=== PATIENT | female | born 1985 ===

== ENCOUNTER 2024-10-06 08:25 | Outpatient (AMB) | payer MEDICAID, SELFPAY ==
--- NOTE | 2024-10-05 10:07 | OBCLNT_ITS ---
Allergies/Home Meds Allergies & Medications Allergies No Known Allergies Allergy (Verified 01/08/21 14:11) Intake Smoking Status Smoking Status: Never smoker Questionnaires Social History Living Situation History Housing: House Tobacco History Smoking Status: Never smoker Alcohol History Alcohol Intake: Former Alcohol Intake Frequency: holidays/special occasions only Past Medical History Past Medical History Have you ever been diagnosed with any of the following: Neurological Problems Seizures: No Cardiology Problems Congestive Heart Failure: No Respiratory Problems Chronic Obstructive Pulmonary Disease (COPD): No Stomache/Intestinal Problems Hepatitis: No Gall Bladder Disease: Yes Obesity: Yes Genital/Urinary Problems Renal Disease: No Endocrine Problems Diabetes Mellitus Type 1: No Diabetes Mellitus Type 2: Yes (on insulin) Psychologic Problems Anxiety: Yes Depression: Yes Other Problems Hospitalization: No Down Syndrome: No Developmental Delay: No Shingles: No Falls: No Blood Transfusions: No Blood Transfusion Reaction: No Anesthesia Reactions: No Organ Transplant: No Chemotherapy: No Radiation Therapy: No Hyperbaric Therapy: No MRSA: No VRSA: No Vancomycin-Resistant Enterococci: No Human Immunodeficiency Virus (HIV): No Chicken Pox: No Measles: No Mumps: No Rubella (Japanese Measles): No Pertussis: No Clostridium Difficile: No Cancer: No
[2024-10-06 08:35] VITALS: BP 130/84; PULSE 83; RESP 16; TEMP 36.5; O2SAT 97; BMI 39.0
--- NOTE | 2024-10-06 08:35 | OBCLNT_ITS ---
Vital Signs 10/06/24 08:35 Height 1.68 m Height Method Stated Weight 109.826 kg Weight Measurement Method Standing Scale BMI 39.0 BP 130/84 Blood Pressure Source Automatic Cuff Blood Pressure Location Left Upper Arm Position Sitting Respiration 16 Pulse 83 Pulse Source Monitor Temp 97.7 F Temp Source Oral Pulse Oximetry (%) 97 Oxygen Delivery Method Room Air Allergies/Home Meds Allergies & Medications Allergies No Known Allergies Allergy (Verified 11/02/24 14:05) Medication Reconciliation prenat.vits,wen,cue-[id number]-[id number] 1 tab PO QDAY 01/08/21 [History Confirmed 11/02/24] Intake Visit Data Collection New Patient or Established: New Patient (never been to [facility]) Reason for Visit:: Feeling very agitated daily, hands going numb and hurting, lower back pain, difficulty sleeping at night, request to be taken off work Seen by Clinical Staff ONLY (RN/MA): No Supervisor [employer] Required: No Do You Feel Safe at Home: Yes Authorities Contacted: N/A PCP or OBGYN visit in last 3 months: Yes Hx Now: Yes Are you currently on any form of Control: No Last menstrual period: 01/31/24 Pain Present Currently: No Pain Scale Used: Guillory-Irby/Numerical Pain scale:: 0 Smoking Status Smoking Status: Never smoker Questionnaires Covid-19 Vaccine Questionnaire Has patient been vacinated for Covid-19 Have you been vacinated for Covid-19: Yes PHQ-9 PHQ-2 Over the last 2 weeks, how often have you been bothered by any of the following problems? 1. Little interest or pleasure in doing things: not at all 2. Feeling down, depressed, or hopeless: not at all Total score: 0 PHQ-9 3. Trouble falling or staying asleep, or sleeping too much: Not at all 4. Feeling tired or having little energy: Not at all 5. Poor appetite or overeating: Not at all 6. Feeling bad about yourself - or that you are a failure or have let yourself or your family down: Not at all 7. Trouble concentrating on things, such as reading the newspaper or watching television: Not at all 8. Moving or speaking so slowly that other people could have noticed? - Or the opposite - being so fidgety or restless that you have been moving around a lot more than usual: not at all 9. Thoughts that you would be better off or of hurting yourself in some way: Not at all Total score: 0 Source: Developed by Drs. Suman Bullock, Gabi Esposito, Obey Mejia and colleagues, with an educational radames from [employer]. Depression screen completed yes Social History Living Situation History Marital Status: Lives With: Family Housing: House Tobacco History Smoking Status: Never smoker Second Hand Smoke Exposure: No Alcohol History Alcohol Intake: Former Alcohol Intake Frequency: holidays/special occasions only Substance Use History Substance Use: NONE Domestic Abuse History Do You Feel Safe at Home: Yes Past Medical History Past Medical History Have you ever been diagnosed with any of the following: Neurological Problems Cerebrovascular Accident (CVA): No Transient Ischemic Attacks (TIA): No Dementia: No Alzheimer's Disease: No Parkinson's Disease: No Brain Tumor: No Meningitis: No Seizures: No Epilepsy: No Multiple Sclerosis: No Cerebral Palsy: No Cardiology Problems Myocardial Infarction: No Cardiac Arrhythmia: No Atrial Fibrillation: No Angina: No Heart Murmur: No Coronary Artery Disease: No Atherosclerotic Heart Disease: No Peripheral Vascular Disease: No Hypercholesterolemia: No Aneurysm: No Congestive Heart Failure: No Hypertension: No Respiratory Problems Chronic Obstructive Pulmonary Disease (COPD): No Asthma: No Bronchitis: No Emphysema: No Pneumonia: No Tuberculosis: No Hx Cough: No Cough: No Wheezing: No Chest Deformities: No Smoking: No Smoking Cessation Counseling: No Smoking Exposure: No Tobacco Use: No Stomache/Intestinal Problems Liver Cancer: No Hepatitis: No Cirrhosis: No Pancreatic Cancer: No Pancreatitis: No Gall Bladder Disease: Yes Ulcer: No Colorectal Cancer: No Irritable Bowel: No Crohn's Disease: No Obstructive Bowel: No Obesity: Yes Genital/Urinary Problems Chronic Kidney Disease: No Renal Disease: No Kidney Stones: No Reproductive Problems Breast Cancer: No Endometriosis: No Fibroids: No Genital Herpes: No Gonorrhea: No Previous Pregnancies: Yes Syphilis: No Musculoskeletal Problems Muscular Dystrophy: No Myasthenia Gravis: No Marfan's Syndrome: No Bone Cancer: No Arthritis: No Rheumatoid Arthritis: No Osteoporosis: No Fractures: No Head,Eye,Nose,Throat Problems Cataracts: No Blind: No Chronic Ear Infections: No Deafness: No Eye Prosthesis: No Endocrine Problems Diabetes Mellitus Type 1: No Diabetes Mellitus Type 2: Yes (on insulin) Hypoglycemia: No [place]'s Syndrome: No Dare's Disease: No Thyroid Cancer: No Adrenal Disease: No Graves' Disease: No Blood Problems Anemia: No Leukemia: No Hemophilia: No Thalassemia: No Sickle Cell Disease: No Clotting Problems: No Psychologic Problems Schizophrenia: No Recreational Drug Use: No Bipolar Disorder: No Depression: Yes Anxiety: Yes Behavior Problems: No Self-Mutilation: No Attention Deficit Disorder: No Attention Deficit Hyperactivity Disorder: No Depression: Yes Post Traumatic Stress Disorder: No Eating Disorder: No Other Problems Hospitalization: No Autoimmune Disease: No Down Syndrome: No Developmental Delay: No Shingles: No Falls: No Blood Transfusions: No Blood Transfusion Reaction: No Anesthesia Reactions: No Organ Transplant: No Chemotherapy: No Radiation Therapy: No Hyperbaric Therapy: No MRSA: No VRSA: No Vancomycin-Resistant Enterococci: No Human Immunodeficiency Virus (HIV): No Chicken Pox: No Measles: No Mumps: No Rubella (Luxembourgish Measles): No Pertussis: No Clostridium Difficile: No Cancer: No Surgical History Angioplasty: No Appendectomy: No Bariatric Surgery: No Breast Surgery: No History of Present Illness HPI Narrative Carlyn Aguilar, a woman with a history of two previous C-sections and one miscarriage, presents for a routine obstetric visit. She reports feeling very agitated and anxious daily, which she wonders may be related to weight gain during . The patient also complains of numbness and pain in her hands, as well as severe lower back pain. The patient describes feeling agitated and anxious every day, though the exact onset is unclear. She expresses concern that these symptoms might be related to her weight gain during . Additionally, she reports numbness and pain in her hands, which the clinician attributes to possible -related carpal tunnel syndrome. The patient also mentions severe lower back pain, which is impacting her ability to work. Due to these symptoms and her high-risk status with two previous C-sections, she is requesting to be taken off work starting Friday. The patient denies having diabetes, both currently and during her previous pregnancies. She reports difficulty sleeping at night. When discussing her diet, she mentions having coffee in the morning and varying lunch options, but states she's not eating that bad. Obstetric History - GTPAL: G4 T2 L2 - Current : - Patient is currently - history: - Two previous sections - One miscarriage Medical History - Anxiety, ongoing - Carpal tunnel syndrome during Surgical History - section for failure to dilate - Repeat section Medications and Supplements - Coffee Social History - Substance Use: Drinks coffee in the morning - Occupation: Currently employed, requesting time off work - Diet: Varies for lunch, advised to watch carbohydrate intake Review of Systems General: Positive for agitation, anxiety, weight gain. HEENT: Positive for numbness and pain in hands. Musculoskeletal: Positive for lower back pain. Neurological: Positive for numbness in hands. Psychiatric: Positive for anxiety, agitation. OB Initial Visit Menstrual History Menstrual reliability: approximate (month known) Flow: heavy Menstrual regularity: irregular Monthly: No Age at menarche: 12 On control pills at conception: No Associated symptoms (LMP): Reports fatigue OB History : 4 Para: 2 Hx Total # of Abortions (Spontaneous & Elective): 1 # of Living Children: 2 Delivery History 1st : Child's name: SAM date: 04/06/10 sex: male Delivery type: History of depression before or after : Yes 2nd : Child's name: GABRIELLA date: 01/04/21 sex: male Delivery type: History of depression before or after : Yes Infection History & Risk Evaluation History of STDs: chlamydia Genetic Screening & History Genetic Screening/Teratology Counseling - Includes patient, baby's father, or anyone in either family with: 1. Patient's age 35 years or older as of estimated date of delivery: Yes 3. Neural Tube Defect (Meningomyelocele, Spina Bifida, or Anencephaly): No 4. Congenital Heart Defect: No 5. Down Syndrome: No 6. Umer-Sachs (Ashkenazi Rastafari, Cajun, Estonian Luxembourger): No 7. Lucio Disease (Ashkenazi Rastafari): No 8. Familial Dysautonomia (Ashkenazi Rastafari): No 9. Sickle Cell Disease or Trait (): No 10. Hemophilia or other blood disorders: No 11. Muscular Dystrophy: No 12. Cystic Fibrosis: No 13. Pleasants's Chorea: No 14. Mental Retardation/Autism: No 15. Other inherited genetic or chromosomal disorder: No 16. Maternal Metabolic Disorder (EG,TYPE 1 Diabetes, PKU): No 17. Patient or baby's father had a child with defects not listed above: No 18. Recurrent loss or a stillbirth: No 19. Medications (including supplements, vitamins, herbs or otc drugs)/illicit/recreational drugs/alcohol since last menstrual period: No 20. Any other: No Infection History 1. Live with someone with TB or exposed to TB: No 2. Rash or viral illness since last menstrual period: No 3. Hepatitis B,C: No 4. History of STD: chlamydia Other (see comments) Source: [employer] OB Flowsheet OB Flowsheet Initial Weight: Not Recorded Date -?-?-?-?-?-?-?-?--?-?-?-?- EGA Weight Edema CTX Effacement BP Fundal ht Pres Dilation Effacement Station Visit Note Alb Glu FHR Mov 10/06/24 -?-?-?-?-?-?-?-?-?-?-?-?- 30w 4d 109.826 kg 130/84 Tra nsfer of care from Dr Malin. Records reviewed. Prev Carlyn Aguilar , pre sents for routine visit. Reports daily agitation, anxiety, numbne ss/pain in hands, severe lower back pain, and insomnia. Requests work leave starting Friday. No CTX/LOF/VB. Reports good FM. No MAX/VS, Epig/RUQ pain. History of 2 prior C-sections and 1 misc arriage. Not diabetic. Labs noted as good. Assessment & Plan: Carlyn Aguilar is a presenting f or follow-up with multiple third-trimester complaints. High-risk (2 prior C-sections) heart tones auscultated, reassurin g Provide work note for leave starting Fri Follow-up in 2 weeks, then transition to weekly appointments Continue routine monitoring Carlyn Aguilar , pre sents for routine visit. Reports daily agitation, anxiety, numbne ss/pain in hands, severe lower back pain, and insomnia. Requests work leave starting Friday. No CTX/LOF/VB. Reports good FM. No MAX/VS, Epig/RUQ pain. History of 2 prior C-sections and 1 misc arriage. Not diabetic. Labs noted as good. Assessment & Plan: Carlyn Aguilar is a presenting f or follow-up with multiple third-trimester complaints. High-risk (2 prior C-sections) heart tones auscultated, reassurin g Provide work note for leave starting Fri Follow-up in 2 weeks, then transition to weekly appointments Continue routine monitoring. Delivery counseling Reviewed prior history and [place] options Discussed risks of TOLAC, including uter ine rupture Noted that [facility] do es not permit TOLAC; referral to outside facility if TOLAC desired Plan for scheduled repeat if n o contraindications arise Routine counseling Reinforced importance of vitami ns (folic acid, iron, calcium) Advised avoiding alcohol, smoking, and u nsafe medications Reviewed signs of complications (severe cramping, bleeding) and when to seek care Encouraged open communication and attendance at all follow-up visits 135 acti ve 11/02/24 -?-?-?-?-?-?-?-?-?-?-?-?- 34w 3d 111.811 kg 114/76 Cry pawel Aguilar, at 34 weeks and 3 days gestation, presents for routine follow-up. No CTX/LOF/VB. Reports good FM. No MAX/VS , Epig/RUQ pain. Complains of lower abdominal pain consis tent with round ligament pain, worsened by movement or stretching. History of 2 prior C-sections, 1 . Confusion noted regarding URMILA (12/07 vs 6). Patient expresses concern that previously scheduled level 2 US on 12/01 may be too close to potential delivery date. Inquires about scheduling and hospital registration. FHR auscultated: 130 bpm (normal). Assessment & Plan: Carlyn Aguilar is a at 34w3d ges tation presenting for visit with round ligament pain and questions regarding delivery planning. ? ?FHR 130 bpm, reassuring ?Adjust URMILA in system to reflect December or per Dr. Malin? prior assessment ?Schedule at 39w0d (one week b efore adjusted URMILA) ?No additional hospital pre-registration needed; current visit suffices ?Contact patient with scheduled C-sectio n date once confirmed Round ligament pain ?Reassure patient this is common in late ?Encourage rest and positional support, especially when pain is triggered by movement or activity Ultrasound planning ?Level 2 US for placenta previa screenin g to be completed within next 2 weeks ?Order through [facility] pending insur ance approval ?Reschedule earlier than 12/01 due to pat ient?s history of early delivery counseling ?Reviewed signs of labor (CTX q5 min, LOF, VB) ?Advised avoiding heavy lifting, promote rest ?Encourage balanced diet with folic acid , calcium, iron; avoid excess sugar ?Promote hydration and small, frequent m eals 140 active Review of Systems Constitutional Constitutional: Reports fatigue Endocrine Endocrine: Reports fatigue Assessment & Plan Diagnosis / Problem List (1) Maternal care for unspecified type scar from previous delivery: Status: Acute (2) : Status: Acute (3) Anxiety: Status: Acute (4) Agitation: Status: Acute (5) Insomnia: Status: Acute (6) Hand numbness: Status: Acute Plan Carlyn Aguilar, woman with history of two C-sections and one miscarriage, presenting with agitation, anxiety, hand numbness, and lower back pain. () Assessment: Patient is currently with her fourth , having had two previous C-sections and one miscarriage. She is not diabetic and her labs look good. The patient is considered high-risk due to her history of two C- sections. heart tones were assessed during the visit. Plan: - Provide work note for leave starting Friday - Follow-up appointment scheduled in two weeks - Transition to weekly appointments after the next visit - Continue monitoring for -related complications Agitation and Anxiety Assessment: Patient reports feeling agitated and anxious daily. This could be related to -induced changes or weight gain. Differential diagnosis includes -related mood changes and generalized anxiety disorder. Plan: - Monitor symptoms and reassess at follow-up appointments - Recommend lifestyle modifications: - Reduce refined carbohydrate intake (white bread, white rice, sugary drinks) - Limit coffee intake to coffee with milk or creamer, avoid high-sugar options like Frappuccinos Hand Numbness and Pain Assessment: Patient reports hand numbness and pain, likely due to - induced carpal tunnel syndrome. This is a common occurrence during , often associated with fluid retention and bloating. Plan: - Educate patient on the benign and typically self-limiting nature of - related carpal tunnel syndrome - Suggest diluted apple cider vinegar (1 teaspoon in water) to help reduce fluid retention - Caution patient about potential dental effects Lower Back Pain Assessment: Patient reports lower back pain, which is common during , especially in the third trimester. This could be exacerbated by weight gain and changes in posture due to the growing uterus. Plan: - Provide work note for leave starting Friday to alleviate physical strain - Encourage proper posture and gentle exercises as tolerated Insomnia Assessment: Patient reports difficulty sleeping at night, which is common during due to physical discomfort, hormonal changes, and anxiety. Plan: - Monitor symptoms and reassess at follow-up appointments - Encourage good sleep hygiene practices The patient was counseled regarding her history of prior delivery. Options for delivery were reviewed, including planned repeat section versus trial of labor after (TOLAC). The risks associated with TOLAC, including uterine dehiscence or rupture, were discussed. Due to hospital policy, TOLAC is not permitted at [facility]. If the patient desires TOLAC, referral to an outside facility that supports this option may be considered. The patient was informed that her delivery plan will be guided by clinical indications, type of prior uterine incision, and overall maternal and health throughout the . Educated the patient on the importance of care, including taking vitamins with folic acid, iron, and calcium. Emphasized avoiding alcohol, smoking, and certain medications. Discussed common symptoms like nausea and fatigue, advising small, frequent meals and adequate hydration. Explained the need for regular check-ups and recommended safe physical activities. Instructed on signs of complications, such as severe cramping or bleeding, and when to seek immediate medical attention. Highlighted the importance of a balanced diet and avoiding high-risk foods. Encouraged open communication about any concerns or questions. Encouraged keeping up with all appointments and tests Office Procedures OB Clinic LOC & Office Proc's Nursing/Assessment Patient Status: Initial/New Patient OB Clinic Nursing Assessment: Medication Reconciliation, Update PMH in EMR and Vital Signs OB Clinic Coordination of Care: AMA, Complex Care and Chronic Disease 1-5, Consent,records obtained, informed consent, Education Simp Pt/Fam, Results/Orders obtained and Staff clarify orders Special Needs: Heart tones New Patient Charge New Patient Point Assignment: [id number] New Patient Point Charge: STEREOPTICIAN Level 4 ([id number])
== END 2024-10-06 08:47 | disposition home or self-care (01) ==
LOC: HODSOBC 08:25
PROVIDERS: Supervising Provider Obstetrics & Gynecology; Visit Provider Obstetrics & Gynecology
DX: O99.343 Other mental disorders complicating pregnancy, third trimester (principal); Z3A.30 30 weeks gestation of pregnancy
CPT/HCPCS: 99204; G0463

== ENCOUNTER 2024-11-02 13:35 | Outpatient (AMB) | payer MEDICAID, SELFPAY ==
[2024-11-02 14:04] VITALS: BP 114/76; PULSE 80; RESP 16; TEMP 36.6; O2SAT 98; BMI 39.6
--- NOTE | 2024-11-02 14:04 | OBCLNT_ITS ---
Vital Signs 11/02/24 14:04 Height 1.68 m Height Method Stated Weight 111.811 kg Weight Measurement Method Standing Scale BMI 39.6 BP 114/76 Blood Pressure Source Automatic Cuff Blood Pressure Location Left Upper Arm Position Sitting Respiration 16 Pulse 80 Pulse Source Monitor Temp 97.8 F Temp Source Oral Pulse Oximetry (%) 98 Oxygen Delivery Method Room Air Allergies/Home Meds Allergies & Medications Allergies No Known Allergies Allergy (Verified 11/02/24 14:05) Medication Reconciliation prenat.vits,wen,[id number]-[id number] 1 tab PO QDAY 01/08/21 [History Confirmed 11/02/24] Intake Visit Data Collection New Patient or Established: Established Patient (seen at [facility] within 3 years) Reason for Visit:: CARE Seen by Clinical Staff ONLY (RN/MA): No Air Defense Specialist Required: No Do You Feel Safe at Home: Yes Authorities Contacted: N/A PCP or OBGYN visit in last 3 months: Yes Hx Now: Yes Pain Present Currently: Yes Pain Location: Abdomen (LOWER ABDOMEN) Pain Scale Used: Guillory-Irby/Numerical Pain scale:: 2 Smoking Status Smoking Status: Never smoker Questionnaires Covid-19 Vaccine Questionnaire Has patient been vacinated for Covid-19 Have you been vacinated for Covid-19: Yes PHQ-9 PHQ-2 Over the last 2 weeks, how often have you been bothered by any of the following problems? 1. Little interest or pleasure in doing things: not at all 2. Feeling down, depressed, or hopeless: not at all Total score: 0 PHQ-9 3. Trouble falling or staying asleep, or sleeping too much: Not at all 4. Feeling tired or having little energy: Not at all 5. Poor appetite or overeating: Not at all 6. Feeling bad about yourself - or that you are a failure or have let yourself or your family down: Not at all 7. Trouble concentrating on things, such as reading the newspaper or watching television: Not at all 8. Moving or speaking so slowly that other people could have noticed? - Or the opposite - being so fidgety or restless that you have been moving around a lot more than usual: not at all 9. Thoughts that you would be better off or of hurting yourself in some way: Not at all Total score: 0 Source: Developed by Drs. Suman Bullock, Gabi Esposito, Obey Mejia and colleagues, with an educational radames from [employer]. Depression screen completed yes Social History Living Situation History Lives With: Family Housing: House Tobacco History Smoking Status: Never smoker Second Hand Smoke Exposure: No Alcohol History Alcohol Intake: Former Alcohol Intake Frequency: holidays/special occasions only Substance Use History Substance Use: NONE Domestic Abuse History Do You Feel Safe at Home: Yes Past Medical History Past Medical History Have you ever been diagnosed with any of the following: Neurological Problems Cerebrovascular Accident (CVA): No Transient Ischemic Attacks (TIA): No Dementia: No Alzheimer's Disease: No Parkinson's Disease: No Brain Tumor: No Meningitis: No Seizures: No Epilepsy: No Multiple Sclerosis: No Cerebral Palsy: No Cardiology Problems Myocardial Infarction: No Cardiac Arrhythmia: No Atrial Fibrillation: No Angina: No Heart Murmur: No Coronary Artery Disease: No Atherosclerotic Heart Disease: No Peripheral Vascular Disease: No Hypercholesterolemia: No Aneurysm: No Congestive Heart Failure: No Hypertension: No Respiratory Problems Chronic Obstructive Pulmonary Disease (COPD): No Asthma: No Bronchitis: No Emphysema: No Pneumonia: No Tuberculosis: No Hx Cough: No Cough: No Wheezing: No Chest Deformities: No Smoking: No Smoking Cessation Counseling: No Smoking Exposure: No Tobacco Use: No Stomache/Intestinal Problems Liver Cancer: No Hepatitis: No Cirrhosis: No Pancreatic Cancer: No Pancreatitis: No Gall Bladder Disease: Yes Ulcer: No Colorectal Cancer: No Irritable Bowel: No Crohn's Disease: No Obstructive Bowel: No Obesity: Yes Genital/Urinary Problems Renal Disease: No Kidney Stones: No Reproductive Problems Breast Cancer: No Endometriosis: No Fibroids: No Genital Herpes: No Gonorrhea: No Previous Pregnancies: Yes Syphilis: No Musculoskeletal Problems Muscular Dystrophy: No Myasthenia Gravis: No Marfan's Syndrome: No Bone Cancer: No Arthritis: No Rheumatoid Arthritis: No Osteoporosis: No Fractures: No Head,Eye,Nose,Throat Problems Cataracts: No Blind: No Chronic Ear Infections: No Deafness: No Eye Prosthesis: No Endocrine Problems Diabetes Mellitus Type 1: No Diabetes Mellitus Type 2: Yes (on insulin) Hypoglycemia: No Jayant's Syndrome: No Cheatham's Disease: No Thyroid Cancer: No Adrenal Disease: No Graves' Disease: No Blood Problems Anemia: No Leukemia: No Hemophilia: No Thalassemia: No Sickle Cell Disease: No Clotting Problems: No Psychologic Problems Schizophrenia: No Recreational Drug Use: No Bipolar Disorder: No Depression: Yes Anxiety: Yes Behavior Problems: No Self-Mutilation: No Attention Deficit Disorder: No Attention Deficit Hyperactivity Disorder: No Depression: Yes Post Traumatic Stress Disorder: No Eating Disorder: No Other Problems Hospitalization: No Down Syndrome: No Developmental Delay: No Shingles: No Falls: No Blood Transfusions: No Blood Transfusion Reaction: No Anesthesia Reactions: No Organ Transplant: No Chemotherapy: No Radiation Therapy: No Hyperbaric Therapy: No MRSA: No VRSA: No Vancomycin-Resistant Enterococci: No Human Immunodeficiency Virus (HIV): No Chicken Pox: No Measles: No Mumps: No Rubella (Swiss Measles): No Pertussis: No Clostridium Difficile: No Cancer: No Surgical History Angioplasty: No Appendectomy: No Bariatric Surgery: No Breast Surgery: No History of Present Illness HPI Narrative Carlyn Aguilar, a patient with a history of two previous C-sections, presents for a follow-up obstetric visit. She reports experiencing pain in her lower abdomen, which has been identified as round ligament pain. The patient describes feeling pain when there is stretching or when the baby kicks. This pain is localized to the lower abdominal area and is consistent with round ligament pain, which is caused by the stretching of the ligaments that support the uterus during . Carlyn appears to be in the third trimest er of her , with her due date being a point of discussion during the visit. Carlyn mentions confusion regarding her due date, stating that she was previously told it was December 07, while the current records show December 11. She also expresses concern about the timing of her scheduled level 2 ultrasound, which was initially set for December 01, a date that may be too close to her potential delivery date given her history of early deliveries in previous pregnancies. The patient inquires about hospital registration for her upcoming delivery and scheduling. She notes that her previous resulted in delivery before 37 weeks gestation, indicating a history of . Obstetric History - GTPAL: G3 T2 L2 - Current : - Estimated due date: December 11, [address]24 ([address] Dr. Armstrong) - Planned at 39 weeks - history: - 2nd : delivery - 1st : delivery, baby born before 37 weeks No contractions/ LOF/VB, reports good FM No MAX/VC/RUQ/Epig pain Review of Systems Review of Systems Systems Reviewed: All systems reviewed, normal except as documented Visit OB Visit Log OB Flowsheet Initial Weight: Not Recorded Date -?-?-?-?-?-?-?-?-?-?-?-?- EGA Weight Edema CTX Effacement BP Fundal ht Pres Dilation Effacement Station Visit Note Alb Glu FHR Mov 10/06/24 -?-?-?-?-?-?-?-?-?-?-?-?- 30w 4d 109.826 kg 130/84 Tra nsfer of care from Dr Malin. Records reviewed. Prev Nathan Morrow, pre sents for routine visit. Reports daily agitation, anxiety, numbne ss/pain in hands, severe lower back pain, and insomnia. Requests work leave starting Friday. No CTX/LOF/VB. Reports good FM. No MAX/VS, Epig/RUQ pain. History of 2 prior C-sections and 1 misc arriage. Not diabetic. Labs noted as good. Assessment & Plan: Carlyn Aguilar is a presenting f or follow-up with multiple third-trimester complaints. High-risk (2 prior C-sections) heart tones auscultated, reassurin g Provide work note for leave starting Fri Follow-up in 2 weeks, then transition to weekly appointments Continue routine monitoring Nathan Morrow, pre sents for routine visit. Reports daily agitation, anxiety, numbne ss/pain in hands, severe lower back pain, and insomnia. Requests work leave starting Friday. No CTX/LOF/VB. Reports good FM. No MAX/VS, Epig/RUQ pain. History of 2 prior C-sections and 1 misc arriage. Not diabetic. Labs noted as good. Assessment & Plan: Carlyn Aguilar is a presenting f or follow-up with multiple third-trimester complaints. High-risk (2 prior C-sections) heart tones auscultated, reassurin g Provide work note for leave starting Fri Follow-up in 2 weeks, then transition to weekly appointments Continue routine monitoring. Delivery counseling Reviewed prior history and [place] options Discussed risks of TOLAC, including uter ine rupture Noted that [facility] do es not permit TOLAC; referral to outside facility if TOLAC desired Plan for scheduled repeat if n o contraindications arise Routine counseling Reinforced importance of vitami ns (folic acid, iron, calcium) Advised avoiding alcohol, smoking, and u nsafe medications Reviewed signs of complications (severe cramping, bleeding) and when to seek care Encouraged open communication and attendance at all follow-up visits 135 active 11/02/24 -?-?-?-?-?-?-?-?-?-?-?-?- 34w 3d 111.811 kg 114/76 Cry pawel Aguilar, at 34 weeks and 3 days gestation, presents for routine follow-up. No CTX/LOF/VB. Reports good FM. No MAX/VS , Epig/RUQ pain. Complains of lower abdominal pain consis tent with round ligament pain, worsened by movement or stretching. History of 2 prior C-sections, 1 . Confusion noted regarding URMILA (12/07 vs 12/11). Patient expresses concern that previously scheduled level 2 US on 12/01 may be too close to potential delivery date. Inquires about scheduling and hospital registration. FHR auscultated: 130 bpm (normal). Assessment & Plan: Carlyn Aguilar is a at 34w3d ges tation presenting for visit with round ligament pain and questions regarding delivery planning. ? ?FHR 130 bpm, reassuring ?Adjust URMILA in system to reflect December d or per Dr. Malin? prior assessment ?Schedule at 39w0d (one week b efore adjusted URMILA) ?No additional hospital pre-registration needed; current visit suffices ?Contact patient with scheduled C-sectio n date once confirmed Round ligament pain ?Reassure patient this is common in late ?Encourage rest and positional support, especially when pain is triggered by movement or activity Ultrasound planning ?Level 2 US for placenta previa screenin g to be completed within next 2 weeks ?Order through [facility] pending insur ance approval ?Reschedule earlier than 12/01 due to pat ient?s history of early delivery counseling ?Reviewed signs of labor (CTX q5 min, LOF, VB) ?Advised avoiding heavy lifting, promote rest ?Encourage balanced diet with folic acid , calcium, iron; avoid excess sugar ?Promote hydration and small, frequent m eals 140 active URMILA Calculator Estimated Delivery Date Method Current WG Current Estimate 12/11/24 Ultrasound #1 34w 5d Other Estimates 11/07/24 LMP (Uncertain) 39w 4d Exam General General Appearance: alert, in no apparent distress and healthy appearing Head Head exam: atraumatic Neck Neck exam: Present normal inspection and trachea midline Chest Chest inspection: Present normal inspection and symmetric chest wall rise External exam: Present normal external exam; Absent tenderness Neuro Neurological exam: Present oriented X3 Psych Psychiatric exam: Present normal affect and normal mood Assessment & Plan Diagnosis / Problem List (1) Hand numbness: Status: Acute (2) Insomnia: Status: Acute (3) Agitation: Status: Acute (4) Anxiety: Status: Acute (5) Maternal care for unspecified type scar from previous delivery: Status: Acute (6) : Status: Acute Plan Problem List , round ligament pain Assessment patient at approximately 34-3/7 weeks gestation presenting for routine visit. Patient reports round ligament pain, which is consistent with normal progression. heart rate auscultated at 130 bpm, which is within normal range. History of two previous sections noted, necessitating a level 2 ultrasound to assess for placenta previa. There is a discrepancy in the due date, with the patient reporting December 07 and the provider's records showing December 11. A planned section is to be scheduled at 39 weeks gestation, one week prior to the due date. Plan Schedule a level 2 ultrasound within the next 2 weeks to check for placenta previa due to the patient's history of 2 C-sections. Order the ultrasound through [facility], pending insurance authorization. Adjust the due date in the system to December 07 or December [address] Malin' initial calculation. Schedule a at 39 weeks gestation, one week prior to the adjusted due date. Contact the patient with the confirmed date once scheduled. No hospital pre-registration is required as the current visit suffices for registration purposes. Educated the patient on labor signs, including regular contractions, lower back pain, and changes in vaginal discharge. Advised avoiding heavy lifting and getting adequate rest. Instructed to contact the office immediately if any signs occur. Discussed the importance of a balanced diet rich in folic acid, iron, and calcium, and provided a list of recommended and to-avoid foods. Emphasized avoiding high-sugar foods to reduce gestational diabetes risk. Encouraged hydration and frequent, small meals for energy.. Office Procedures OB Clinic LOC & Office Proc's Nursing/Assessment Patient Status: Established Patient OB Clinic Nursing Assessment: Medication Reconciliation, Update PMH in EMR and Vital Signs OB Clinic Coordination of Care: AMA, Complex Care and Chronic Disease 1-5, Consent,records obtained, informed consent, Education Simp Pt/Fam and Results/Orders obtained Special Needs: Heart tones Miscellaneous Interventions: Blood/Urine Collection Established Patient Charge Established Patient Point Assignment: 160 Established Patient Point Charge: EP Level 5 (160-above)
== END 2024-11-02 14:24 | disposition home or self-care (01) ==
LOC: HODSOBC 13:35
PROVIDERS: PCP Obstetrics & Gynecology; Referring Provider Obstetrics & Gynecology; Supervising Provider Obstetrics & Gynecology; Visit Provider Obstetrics & Gynecology
DX: O09.293 Supervision of pregnancy with other poor reproductive or obstetric history, third trimester (principal); O09.891 Supervision of other high risk pregnancies, first trimester; O34.219 Maternal care for unspecified type scar from previous cesarean delivery; O09.213 Supervision of pregnancy with history of pre-term labor, third trimester; Z3A.34 34 weeks gestation of pregnancy; O99.343 Other mental disorders complicating pregnancy, third trimester; F41.9 Anxiety disorder, unspecified; O99.353 Diseases of the nervous system complicating pregnancy, third trimester; G47.00 Insomnia, unspecified; O99.891 Other specified diseases and conditions complicating pregnancy; R20.0 Anesthesia of skin
CPT/HCPCS: 99215; G0463

== ENCOUNTER 2024-11-16 09:09 | Outpatient (AMB) | payer MEDICAID, SELFPAY ==
[2024-11-16 09:36] VITALS: BP 120/81; PULSE 81; RESP 18; TEMP 36.2; O2SAT 96; BMI 39.8
--- NOTE | 2024-11-16 09:36 | OBCLNT_ITS ---
Vital Signs 11/16/24 09:36 Height 1.68 m Height Method Stated Weight 112.491 kg Weight Measurement Method Standing Scale BMI 39.8 BP 120/81 Blood Pressure Source Automatic Cuff Blood Pressure Location Left Upper Arm Position Sitting Respiration 18 Pulse 81 Pulse Source Monitor Temp 97.2 F Temp Source Oral Pulse Oximetry (%) 96 Oxygen Delivery Method Room Air Allergies/Home Meds Allergies & Medications Allergies No Known Allergies Allergy (Verified 11/16/24 09:37) Medication Reconciliation prenat.vits,wen,lyk-wzoo-fxyhk 1 tab PO QDAY 01/08/21 [History Confirmed 11/16/24] Intake Visit Data Collection New Patient or Established: Established Patient (seen at [facility] within 3 years) Reason for Visit:: - visit at 36 weeks and 3 days gestation Seen by Clinical Staff ONLY (RN/MA): No Weight Recorder Required: No Do You Feel Safe at Home: Yes Authorities Contacted: N/A PCP or OBGYN visit in last 3 months: Yes Date of Last PCP or OBGYN visit: 11/02/24 Hx Now: Yes Are you currently on any form of Control: No Pain Present Currently: No Pain Scale Used: Guillory-Irby/Numerical Pain scale:: 0 Smoking Status Smoking Status: Never smoker Questionnaires Covid-19 Vaccine Questionnaire Has patient been vacinated for Covid-19 Have you been vacinated for Covid-19: Yes PHQ-9 PHQ-2 Over the last 2 weeks, how often have you been bothered by any of the following problems? 1. Little interest or pleasure in doing things: not at all 2. Feeling down, depressed, or hopeless: not at all Total score: 0 PHQ-9 3. Trouble falling or staying asleep, or sleeping too much: Not at all 4. Feeling tired or having little energy: Not at all 5. Poor appetite or overeating: Not at all 6. Feeling bad about yourself - or that you are a failure or have let yourself or your family down: Not at all 7. Trouble concentrating on things, such as reading the newspaper or watching television: Not at all 8. Moving or speaking so slowly that other people could have noticed? - Or the opposite - being so fidgety or restless that you have been moving around a lot more than usual: not at all 9. Thoughts that you would be better off or of hurting yourself in some way: Not at all Total score: 0 If you checked off any problems, how difficult have these problems made it for you to do your work, take care of things at home, or get along with other people?: not difficult at all Source: Developed by Drs. Suman Bullock, Gabi Esposito, Obey Mejia and colleagues, with an educational radames from [employer]. 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 - Patient has a history of 2 previous sections. - Due date discrepancy noted: - Records from [facility] indicate December 07 as the due date. - Corrected due date of December 11 based on 7-week ultrasound. - Planned for repeat section: - Scheduled for December 06 at 12:30 PM. - Will be her 3rd section. - No BTL (bilateral tubal ligation) planned. - GBS (Group B Streptococcus) test performed today, results pending. No contractions/ LOF/VB, reports good FM No MAX/VC/RUQ/Epig pain Care OB Visit Log OB Flowsheet Initial Weight: Not Recorded Date -?-?-?-?-?-?-?-?-?-?-?-?- EGA Weight BP Alb Glu CTX Pres Fundal ht FHR Mov Dilation Station Effa cement Hx Notes Visit Note 10/06/24 -?-?-?-?-?-?-?-?-?-?-?-?- 30w 4d 109.826 kg 130/84 135 active Transfer of care from Dr Malin. Records reviewed. Prev Carlyn Aguilar, , pre sents for routine visit. Reports daily agitation, anxiety, numbne ss/pain in hands, severe lower back pain, and insomnia. Requests work leave starting Friday. No CTX/LOF/VB. Reports good FM. No MAX/VS, Epig/RUQ pain. History of 2 prior C-sections and 1 misc arriage. Not diabetic. Labs noted as good. Assessment & Plan: Carlyn Aguilar is a presenting f or follow-up with multiple third-trimester complaints. High-risk (2 prior C-sections) heart tones auscultated, reassurin g Provide work note for leave starting Fri day Follow-up in 2 weeks, then transition to weekly appointments Continue routine monitoring Carlyn Aguilar , pre sents for routine visit. Reports daily agitation, anxiety, numbne ss/pain in hands, severe lower back pain, and insomnia. Requests work leave starting Friday. No CTX/LOF/VB. Reports good FM. No MAX/VS, Epig/RUQ pain. History of 2 prior C-sections and 1 misc arriage. Not diabetic. Labs noted as good. Assessment & Plan: Carlyn Aguilar is a presenting f or follow-up with multiple third-trimester complaints. High-risk (2 prior C-sections) heart tones auscultated, reassurin g Provide work note for leave starting Fri day Follow-up in 2 weeks, then transition to weekly appointments Continue routine monitoring. Delivery counseling Reviewed prior history and [place] bal[place] options Discussed risks of TOLAC, including uter ine rupture Noted that [facility] do es not permit TOLAC; referral to outside facility if TOLAC desired Plan for scheduled repeat if n o contraindications arise Routine counseling Reinforced importance of vitami ns (folic acid, iron, calcium) Advised avoiding alcohol, smoking, and u nsafe medications Reviewed signs of complications (severe cramping, bleeding) and when to seek care Encouraged open communication and attendance at all follow-u p visits 11/02/24 -?-?-?-?-?-?-?-?-?-?-?-?- 34w 3d 111.811 kg 114/76 140 active Crystal Aguilar, at 34 weeks and 3 days gestation, presents for routine follow-up. No CTX/LOF/VB. Reports good FM. No MAX/VS , Epig/RUQ pain. Complains of lower abdominal pain consis tent with round ligament pain, worsened by movement or stretching. History of 2 prior C-sections, 1 . Confusion noted regarding URMILA (12/07 vs 12/11). Patient expresses concern that previously scheduled level 2 US on 12/01 may be too close to potential delivery date. Inquires about scheduling and hospital registration. FHR auscultated: 130 bpm (normal). Assessment & Plan: Carlyn Aguilar is a at 34w3d ges tation presenting for visit with round ligament pain and questions regarding delivery planning. ? ?FHR 130 bpm, reassuring ?Adjust URMILA in system to reflect December or per Dr. Malin? prior assessment ?Schedule at 39w0d (one week b efore adjusted URMILA) ?No additional hospital pre-registration needed; current visit suffices ?Contact patient with scheduled C-sectio n date once confirmed Round ligament pain ?Reassure patient this is common in late ?Encourage rest and positional support, especially when pain is triggered by movement or activity Ultrasound planning ?Level 2 US for placenta previa screenin g to be completed within next 2 weeks ?Order through [facility] pending insur ance approval ?Reschedule earlier than 12/01 due to pat ient?s history of early delivery counseling ?Reviewed signs of labor (CTX q5 min, LOF, VB) ?Advised avoiding heavy lifting, promote rest ?Encourage balanced diet with folic acid , calcium, iron; avoid excess sugar ?Promote hydration and small, frequent m eals 11/16/24 -?-?-?-?-?-?-?-?-?-?-?-?- 36w 3d 112.491 kg 120/81 Carlyn Aguilar, 36 y/o at 36w3d, presents for visit. History of 2 prior sections. Discrepant EDDs noted (LWC URMILA 12/07/2024 vs. corrected URMILA 12/11/2024 based on 7w ultrasound). Scheduled for repeat (#3) on 12/06/2024 at 12:30 PM. No plans for BTL. Reports good movement, no contractions or labor signs. GBS swab collected today, results pending. Plan: Proceed with planned on 12/07/19 at 12:30 PM Monitor for any earlier openings on the surgical schedule Await GBS result; treat per protocol if positive Routine follow-up in 10?14 da ys post-op Patient education reviewed: moveme nt monitoring, signs of labor, and when to present to L&D URMILA Calculator Estimated Delivery Date Method Current WG Current Estimate 12/11/24 Ultrasound #1 38w 2d Other Estimates 11/07/24 LMP (Uncertain) 43w 1d Exam General General Appearance: alert, in no apparent distress and healthy appearing Head Head exam: atraumatic Neck Neck exam: Present normal inspection and trachea midline Chest Chest inspection: Present normal inspection and symmetric chest wall rise External exam: Present normal external exam; Absent tenderness Neuro Neurological exam: Present oriented X3 Psych Psychiatric exam: Present normal affect and normal mood Office Procedures OB Clinic LOC & Office Proc's Nursing/Assessment Patient Status: Established Patient OB Clinic Nursing Assessment: Medication Reconciliation, Update PMH in EMR and Vital Signs OB Clinic Coordination of Care: Consent,records obtained, informed consent, Education Simp Pt/Fam, Lab and Imaging orders and Staff clarify orders Special Needs: Heart tones Established Patient Charge Established Patient Point Assignment: 105 Established Patient Point Charge: EP Level 3 (80-115) Assessment & Plan Diagnosis / Problem List (1) Maternal care for unspecified type scar from previous delivery: Status: Acute Plan Problem List - , third trimester - History of previous delivery Assessment - at 36 weeks and 3 days gestation - History of 2 previous sections - Discrepancy in due date calculations: - LMP-based due date: November 07, 2024 (inaccurate) - 7-week ultrasound-based due date: December 11, 2024 (accepted) - Planned for 3rd section - GBS status pending Plan - Schedule for December 06 at 12:30 PM - Monitor for potential earlier dates if they become available - Follow up appointment in 10 days to 2 weeks [id number] - Await GBS test results (pending) Educated the patient on labor signs, including regular contractions, lower back pain, and changes in vaginal discharge. Advised avoiding heavy lifting and getting adequate rest. Instructed to contact the office immediately if any signs occur. Discussed the importance of a balanced diet rich in folic acid, iron, and calcium, and provided a list of recommended and to-avoid foods. Emphasized avoiding high-sugar foods to reduce gestational diabetes risk. Encouraged hydration and frequent, small meals for energy..
== END 2024-11-16 09:50 | disposition home or self-care (01) ==
LOC: HODSOBC 09:09
PROVIDERS: PCP Obstetrics & Gynecology; Referring Provider Obstetrics & Gynecology; Supervising Provider Obstetrics & Gynecology; Visit Provider Obstetrics & Gynecology
DX: O09.523 Supervision of elderly multigravida, third trimester (principal); O09.293 Supervision of pregnancy with other poor reproductive or obstetric history, third trimester; Z3A.34 34 weeks gestation of pregnancy; O34.219 Maternal care for unspecified type scar from previous cesarean delivery
CPT/HCPCS: 99213; G0463

== ENCOUNTER 2024-11-29 11:14 | Observation (INO) | payer MEDICAID, SELFPAY ==
[2024-11-29] VITALS (46 sets, daily range): BP systolic 134–137; BP diastolic 64–77; PULSE 72–96; RESP 20–98; TEMP 36.9; O2SAT 89–100; BMI 40.1
--- NOTE | 2024-11-29 13:19 | PC.NURSE ---
md called with update. Pt still susie 4-7 minutes apart. pt rates pain 7/10 during contraction. order received for terb 0.25 sqx1. call md back with update after 30 minutes.
[2024-11-29] MEDS: TERBUTALINE SULF INJ 1 MG/ML VIAL 0.25 MG SC (13:28)
[2024-11-29] MEDS: RINGERS LACTATED 1000 ML 1,000 ML 999 ML IV (13:31)
--- NOTE | 2024-11-29 15:26 | PC.NURSE ---
Pt given antepartum instructions. return to triage if leaking, bleeding, ctx 5 minutes apart or decreased FM. 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 scheduled for repeat with BTL 12/06/24. Also Md scheduled follow up appt tomorrow with Dr Hylton.
== END 2024-11-29 15:27 | disposition home or self-care (01) ==
PROVIDERS: Admitting Provider Obstetrics & Gynecology; Visit Provider Obstetrics & Gynecology
DX: O47.1 False labor at or after 37 completed weeks of gestation (principal); Z3A.38 38 weeks gestation of pregnancy
CPT/HCPCS: 59025; 59899; 96372; J3105; J7120

== ENCOUNTER 2024-11-30 09:54 | Inpatient (IN) | payer MEDICAID, SELFPAY ==
[2024-11-30] VITALS (30 sets, daily range): BP systolic 105–146; BP diastolic 64–89; PULSE 67–97; RESP 16–99; TEMP 36.4–36.9; O2SAT 96–100; BMI 40.4
[2024-11-30] MEDS: CITRIC ACID/SODIUM CITR 15 ML UDC (BICITRA) 30 ML PO (11:51)
[2024-11-30] MEDS: ceFAZolin/D5W 2 GM IV 2 GM/100 ML BAG IV (11:51)
[2024-11-30] MEDS: FAMOTIDINE INJ 10 MG/ML VIAL 2 ML 20 MG IV (11:52)
[2024-11-30 11:55] LABS: Basophils % (Auto) 0 % (0-2.5); Eosinophils # (Auto) 0.1 Thou/mm3 (0.0-0.5); Eosinophils % (Auto) 1 % (0-10); Hematocrit 35.5 % (36.0-46.0); Hemoglobin 12.4 g/dL (12.0-16.0); Immature Granulocytes % (Auto) 0 % (0-0); Immature Granulocytes Auto 0.04 Thou/mm3 (0.00-0.00); Lymphocytes # (Auto) 1.2 Thou/mm3 (1.0-4.8); Lymphocytes % (Auto) 12 % (10-50); Mean Corpuscular HGB Conc 34.9 g/dl (31.0-37.0); Mean Corpuscular Hemoglobin 29.7 pg (25.0-35.0); Mean Corpuscular Volume 85 fL (80-100); Monocytes # (Auto) 0.5 Thou/mm3 (0.0-0.8); Monocytes % (Auto) 5 % (0-12); Neutrophils # (Auto) 8.5 Thou/mm3 (1.8-7.7); Neutrophils % (Auto) 82 % (37-80); Nucleated Red Blood Cell % 0 /100 WBC (0); Platelet Count 244 Thou/mm3 (140-440); RDW Standard Deviation 44.1 fL (36.4-46.3); Red Blood Count 4.17 Miln/mm3 (4.00-5.20); White Blood Count 10.3 Thou/mm3 (3.6-11.0)
[2024-11-30 12:29] LABS: Syphilis Nonreactive (Nonreactive)
--- NOTE | 2024-11-30 12:32 | ESHP_ITS ---
Documentation for date of: 11/30/24 OB Labor/Induct. HPI History of Present Illness Chief complaint: Painful uterine contractions : 4 Para: 2 Term pregnancies: 2 pregnancies: 0 Living children: 1 History of Abortions: Spontaneous and Elective: 0 History of Vaginal deliveries: 2 History of sections: Yes (x2) History of : No Date of last menstrual period: 03/02/24 URMILA: 12/11/24 Gestational Age (weeks): 38 Gestational Age (days): 3 Gestational age based on last menstrual period: 39 History of present illness: Patient is a 39-year-old -0-1-2 history of x 1 and history of miscarriage x 1 in the past. All care was started with Dr. Malin and transferred to Dr. Armstrong at 30 weeks . Patient is 38-3/7 weeks with an EDC of 12/11/2024. She has a history of x 2 and presented to triage this afternoon with painful regular uterine contractions. Patient cervix was 1 to 2 cm dilated. She has a history of x 2 in the past she was consented for repeat low-transverse section in labor. Of note the patient desires permanent sterilization and did sign tubal consents in the office with Dr. Malin. These are on the chart. She understands the risk of a tubal ligation including the permanency of the procedure, the risk of failure of 1 in the 100, and the increased risk of ectopic should failure occur. The patient desires to proceed with repeat and tubal ligation at this time. History of Present Dating criteria: LMP confirmed by 1st trimester US Adequate Care: Yes Ultrasounds: normal mid trimester US Obstetrical complications: none Medical complications: other (Maternal BMI of 40) Labs Maternal Blood Type: O Pos Labs: Positive: Rubella Titre, Negative: RPR, Hepatitis B, HIV, Chlamydia and Gonorrhea and Unknown: Herpes Type 1, Herpes Type 2, Group Beta Strep and Covid-19 Review of Systems Review of Systems Narrative Review of Systems: Patient reports painful uterine contractions, no vaginal bleeding, no loss of fluids. She reports good movement. Past Medical History Past Medical History GASTROINTESTINAL: Positive Obesity Surgical History SURGICAL: Positive Section (x2) OTHER SURGICAL HX: History of x 2 no complications Meds Home Medications and Allergies Home Medications ?Medication ?Instructions ?Recorded ?Confirmed ?Type prenat.vits,wen,vrs-alry-lhuov 1 tab PO QDAY 01/08/21 11/30/24 History Allergies Allergy/AdvReac Type Severity Reaction Status Date / Time No Known Allergies Allergy Verified 11/30/24 11:55 OB Exam Physical Exam Vital signs: Temp Pulse Resp BP Pulse Ox 98.3 F 86 18 141/85 H 100 11/30/24 09:57 11/30/24 10:06 11/30/24 09:57 11/30/24 10:06 11/30/24 12:21 Constitutional Constitutional: obese Comments: Patient is alert and oriented x 3 she is breathing through her contractions but is otherwise in no apparent distress Routine Respiratory Exam Respiratory: Present CTA bilaterally Routine Cardiovascular Exam Cardiovascular: Present RRR Routine Abdominal Exam Abdominal: Present soft and surgical scars (Pfannenstiel incision) Detailed Labor and Delivery Exam Dilation (cm): 1-2 Effacement (%): 50 Cervix position: posterior station: -3 Consistency: soft Presentation: Vertex monitor accelerations: 15x15 monitor decelerations: None alf variability: Moderate (11-25) Contraction frequency (min): Every 3 to 5 minutes Tachysystole: No Contraction intensity: Moderate OB Results Labs 11/30/24 11:20 Labs: Short CBC 11/30/24 Range/Units 11:20 WBC 10.3 (3.6-11.0) Thou/mm3 Hgb 12.4 (12.0-16.0) g/dL Hct 35.5 L (36.0-46.0) % Plt Count 244 (140-440) Thou/mm3 OB Assessment & Plan Assessment and Plan (1) Supervision of high risk in third trimester: Status: Acute (2) Previous section: Status: Acute Assessment and plan: Previous x 2. Patient in active labor. Consented for repeat C- section #3. Risks of the procedure were discussed the patient and her . The risk of bleeding, infection, blood transfusion, damage to bowel, bladder, blood vessels, other organs were discussed. Further surgery and prolonged hospitalization were discussed. Patient desires to proceed. (3) Multiparity: Status: Acute Assessment and plan: Patient signed consents for tubal ligation. The risks of the procedure were discussed including the risk of failure of 1 and 100. The risk of increased ectopic should failure occur. Patient desires to proceed. (4) Morbid obesity with BMI of 40.0-44.9, adult: Status: Acute Assessment and plan: Lovenox . Early ambulation. SCD boots.
[2024-11-30] MEDS: OXYTOCIN in NS 20 units 20 UNIT/1,000 ML BAG 125 UNIT IV ×2 (14:00→19:03)
[2024-11-30] MEDS: METHYLERGONOVINE INJ 0.2 MG/ML VIAL IM (14:44)
[2024-11-30] MEDS: ONDANSETRON INJ 2 MG/ML INJ 2 ML 4 MG IVP (16:00)
--- NOTE | 2024-11-30 17:11 | ESOP_ITS ---
Operative Note - PRODUCT MANAGENT INTERN Procedure Date of procedure: 11/30/24 Procedure Performed: Repeat low-transverse section Indication: The patient is a 39-year-old -0-1-2 with all care started with Dr. Malin transferred to Dr. Armstrong at 30 weeks. She has a history of x 2 in the past. She was scheduled for repeat on December 05. The patient presented with painful uterine contractions the afternoon of 11/30/2024 and was consented for repeat low-transverse section in labor. Of note the patient did sign tubal ligation papers in the office and desired permanent sterilization in the form of a tubal ligation. Pre-Op diagnosis: 1. Intrauterine at 38-3/7 weeks 2. Active labor 3. Previous x 2 4. Multiparity, desires permanent sterilization Post-Op diagnosis: Same Anesthesia type: Spinal Procedure description: After obtaining informed consent, the patient was brought back to the operating room and spinal anesthesia administered. She was then prepped and draped in the dorsal supine position and a leftward tilt in a normal sterile fashion. A Carlos catheter was inserted into the patient's bladder. The patient was given 2 g of Ancef intravenously by anesthesia. A Pfannenstiel skin incision was made with a scalpel and the prior scar removed. The incision was carried down to the underlying fascia. The fascia was incised in the midline and the fascial incision extended laterally using Hidalgo scissors. The superior aspect the fascia was grasped with Nayeli clamps and the underlying rectus muscles dissected off using blunt and sharp dissection. This was repeated in the inferior aspect of t he incision. The rectus muscles were then the midline and the peritoneum was entered using blunt and sharp dissection. This was extended superiorly and inferiorly with good visualization of the bladder. The bladder blade was inserted and the uterus was incised in a low transverse fashion above the bladder reflection using a scalpel. The uterine incision was extended laterally using blunt dissection with the surgeon's fingers. The bag of water was ruptured and clear fluid was noted. The bladder blade was removed and the infant was delivered atraumatically. The cord was clamped and cut, and the was handed off to the waiting pediatric staff. Cord blood was collected. Cord gases were saved. The placenta was then manually removed, and the uterus was exteriorized and cleared of all clots and debris. The uterine incision was repaired using 0 Monocryl in a running locked fashion. Excellent hemostasis was noted. The uterus was returned to the patient's abdominal cavity and copious irrigation carried out with warm normal saline. The uterine incision was reexamined and noted be hemostatic. After surveying the fallopian tubes bilaterally and the ovaries it was noted that both fallopian tubes were completely adhesed to the utero-ovarian ligaments bilaterally. There was no free portion of fallopian tube that could be removed safely. Secondary to dense adhesions of the fallopian tubes, the patient was told tubal ligation was not possible. I also did not recommend a tubal ligation be performed later laparoscopically as her tubes were completely adhesed. The uterine incision was reexamined another time and noted to be hemostatic. After ensuring the rectus muscles were hemostatic, these were reapproximated in the midline using a running suture of 0 Monocryl. The fascia was closed with 0 Vicryl in a running fashion. The subcutaneous tissues were irrigated and found to be hemostatic, these were reapproximated using a running suture of 3-0 plain. The skin was closed with a subcuticular suture of 4-0 Monocryl. The patient tolerated the procedure well, sponge, lap, needle, and instrument counts were correct x 2. The patient went to the recovery area awake and in stable condition. Pathology was none. Fluids: crystalloid Fluid amount (mL): 800 Urine output (mL): 200 Specimen: none Implants: None Estimated blood loss (ml): 400 Findings: Liveborn male in the OA presentation with a loose nuchal cord x 1 and a true cord x 1 no meconium. Apgars were 9 and 9 weight was 3530 g time of 1301. Complications: none Surgical staff Operation Date: 11/30/24 12:45 Case Staff CARTON WRAPPER: Reagan Jiménez RN First Assistant: Mindy Vieyra Diagnosis Discharge Diagnosis (1) Morbid obesity with BMI of 40.0-44.9, adult: Status: Acute Problem details: Lovenox (2) Multiparity: Status: Acute Problem details: Patient had desired tubal ligation. This could not be performed secondary to dense adhesions of fallopian tubes. Patient was aware. (3) Previous section: Status: Acute Problem details: Repeat in labor performed (4) Supervision of high risk in third trimester: Status: Acute Problem List Completed Was Problem List Reviewed/Reconciled?: Yes
[2024-11-30] MEDS: RINGERS LACTATED 1000 ML 1,000 ML 500 ML IV (21:26)
--- NOTE | 2024-11-30 21:33 | PC.NURSE ---
Informed Dr Archer of pts urine output of 50cc over 2 hrs, with 1000cc po challenge. new order for LR 1L over 2 hrs. IV x1
[2024-12-01] MEDS: KETOROLAC INJ 30 MG/ML VIAL IVP (00:35)
--- NOTE | 2024-12-01 01:00 | OBDSUM_ITS ---
Data (Nath) Data Hx Section: Yes (x2) : 4 Term: 2 : 0 Livin Abortions: Spontaneous & Theraputic: 0 Delivery Data (Nath) Labor Data Induction/Augmentation Agent: None ROM date: 11/30/24 ROM time: 13:01 Amniotic membrane rupture type: Artificial Amniotic fluid description: Clear Delivery Data Onset of labor date: 11/30/24 Onset of labor time: 05:00 delivery date: 11/30/24 delivery time: 13:01 Placenta delivery date: 11/30/24 Placenta delivery time: 13:02 Delivered by: Bertha Archer ([facility]) Delivery nurse: CORONA Moran Neworn nurse: CORONA Hicks Senior Mainframe Developer at delivery: Yes Support person(s) at delivery: FOB IN OR Other staff at delivery: Inga Camejo - Jennifer Farias Delivery Method Delivery method: Low Transverse Presentation: Vertex position: OA Anesthesia Type Anesthesia Type: None Anesthesia type: Spinal Placenta Placenta delivery description: Manual Removal Cord blood sent to lab: Yes cord blood collection: Cord Blood Type Episiotomy Episiotomy description: None EBL Estimated blood loss (ml): 400 Umbilical Cord cord description: 3 Vessels, Nuchal Cord and True Knot Additional Procedures See op report for details Complications Complications: None Data (Nath) Data order: 1 's gender: Male Identification band number: [id number] weight (gms): 3530 g Weight (pounds): 7 lbs and 12.5 ozs length: 52 cm 1 minute: 9 5 minutes: 9 10 minutes: 9
[2024-12-01] MEDS: RINGERS LACTATED 1000 ML 1,000 ML 100 ML IV ×2 (02:23→13:07)
[2024-12-01 03:43] VITALS: BP 115/78; PULSE 71; RESP 17; TEMP 36.7; O2SAT 98
[2024-12-01 05:16] LABS: Basophils % (Auto) 0 % (0-2.5); Eosinophils % (Auto) 0 % (0-10); Hematocrit 26.4 % (36.0-46.0); Hemoglobin 9.4 g/dL (12.0-16.0); Immature Granulocytes % (Auto) 1 % (0-0); Immature Granulocytes Auto 0.07 Thou/mm3 (0.00-0.00); Lymphocytes # (Auto) 1.3 Thou/mm3 (1.0-4.8); Lymphocytes % (Auto) 9 % (10-50); Mean Corpuscular HGB Conc 35.6 g/dl (31.0-37.0); Mean Corpuscular Hemoglobin 29.8 pg (25.0-35.0); Mean Corpuscular Volume 84 fL (80-100); Monocytes # (Auto) 0.8 Thou/mm3 (0.0-0.8); Monocytes % (Auto) 6 % (0-12); Neutrophils # (Auto) 11.8 Thou/mm3 (1.8-7.7); Neutrophils % (Auto) 84 % (37-80); Nucleated Red Blood Cell % 0 /100 WBC (0); Platelet Count 196 Thou/mm3 (140-440); RDW Standard Deviation 43.8 fL (36.4-46.3); Red Blood Count 3.15 Miln/mm3 (4.00-5.20); White Blood Count 13.9 Thou/mm3 (3.6-11.0)
[2024-12-01 08:00] VITALS: BP 111/70; PULSE 77; RESP 18; TEMP 36.7; O2SAT 98
[2024-12-01] MEDS: ENOXAPARIN SOD INJ 40 MG/0.4 ML SYRINGE SC (09:49)
[2024-12-01 12:00] VITALS: BP 121/71; PULSE 78; RESP 18; TEMP 36.6; O2SAT 98
[2024-12-01 15:32] VITALS: BP 113/64; PULSE 72; RESP 16; TEMP 36.8; O2SAT 99
[2024-12-01 19:49] VITALS: BP 118/77; PULSE 97; RESP 19; TEMP 36.8; O2SAT 96
--- NOTE | 2024-12-01 20:00 | PD.LDPPPRG ---
Subjective Subjective Interval history: Patient is postoperative day #1 status post repeat . That was her third . She is resting comfortably in bed and has no complaints today. There was some concern about her urine output and she got a couple of boluses last night. Patient has put out a total of 3 L of urine since surgery. Her Carlos catheter has been kept in place approximately for 24 hours and it is now okay to be removed. She is tolerating a general diet and her pain is controlled. The father the baby ,a friend, and the are at bedside. Exam Vital Signs Temp Pulse Resp BP Pulse Ox O2 Del Method 98.3 F 72 16 113/64 99 Room Air 12/01/24 15:32 12/01/24 15:32 12/01/24 15:32 12/01/24 15:32 12/01/24 15:32 12/01/24 15:32 Narrative Exam Patient is alert and oriented x 3 in no apparent distress resting comfortably. Fundus is firm dressing is in place extremities show no cyanosis clubbing or edema. Objective Labs 12/01/24 04:50 Labs: Laboratory Results - last 24 hr 12/01/24 04:50 WBC 13.9 H RBC 3.15 L Hgb 9.4 L D Hct 26.4 L MCV 84 MCH 29.8 MCHC 35.6 RDW Std Deviation 43.8 Plt Count 196 D Neut % (Auto) 84 H Lymph % (Auto) 9 L Sweet [place] % (Auto) 6 Eos % (Auto) 0 Baso % (Auto) 0 Neut # (Auto) 11.8 H Lymph # (Auto) 1.3 [place] # (Auto) 0.8 Eos # (Auto) 0.0 Baso # (Auto) 0.0 Immature Gran # (Auto) 0.07 H Absolute Nucleated RBC 0.00 Immature Gran % 1 H Nucleated RBC % 0 Assessment & Plan Problem List (1) Morbid obesity with BMI of 40.0-44.9, adult: Problem details: Lovenox Status: Acute (2) Multiparity: Problem details: Patient had desired tubal ligation. This could not be performed secondary to dense adhesions of fallopian tubes. Patient was aware. Status: Acute (3) Previous section: Problem details: Repeat in labor performed Status: Acute (4) Supervision of high risk in third trimester: Status: Acute Time Spent With Patient Time: Total time spent is greater than 50% in coordination of care (as documented) at patient's floor/unit and/or counseling patient: Time with patient: less than 15 minutes
[2024-12-01] MEDS: ACETAMINOPHEN 325 MG TABLET 650 MG PO (20:10)
[2024-12-02] MEDS: HYDROcodone/APAP 5/325 TABLET 1 TAB PO (00:05)
[2024-12-02 04:06] VITALS: BP 113/71; PULSE 84; RESP 18; TEMP 36.7; O2SAT 99
[2024-12-02] MEDS: ACETAMINOPHEN 325 MG TABLET 650 MG PO (07:18)
[2024-12-02 08:00] VITALS: BP 114/81; PULSE 83; RESP 17; TEMP 36.7; O2SAT 99
--- NOTE | 2024-12-02 08:04 | PD.LDPPPRG ---
Subjective Subjective Interval history: Delivery type: Patient doing well this morning. No acute complaints. Ambulating, tolerating p.o. and voiding without difficulty. HTN/Pre-Eclampsia screen: No chest pain, shortness of breath, headache, visual changes, epigastric or right upper quadrant pain. Breast-feeding, lochia diminishing. Bowel: Flatus+/ BM+ Exam Vital Signs Temp Pulse Resp BP Pulse Ox O2 Del Method 98.1 F 84 18 113/71 99 Room Air 12/02/24 04:06 12/02/24 04:06 12/02/24 04:06 12/02/24 04:06 12/02/24 04:06 12/02/24 04:06 Constitutional Constitutional: no acute distress Routine HEENT Exam Head: Present normocephalic and atraumatic Eye: Present EOMI and PERRL ENT: Present mucous membranes moist Routine Neck Exam Neck: Present supple and trachea midline Routine Respiratory Exam Respiratory: Present chest non-tender, lungs clear, normal breath sounds and no resp distress Routine Cardiovascular Exam Cardiovascular: Present RRR Routine Abdominal Exam Abdominal: Present soft and normoactive bowel sounds Routine Extremities Exam Extremities: Present full ROM Routine Skin Exam Skin: Present intact, dry and warm Routine Neurological Exam Neurological: Present alert, oriented X3 and CN II-XII intact Routine Psychiatric Exam Psychiatric: Present normal affect and normal thought process Objective Labs 12/01/24 04:50 Assessment & Plan Problem List (1) Morbid obesity with BMI of 40.0-44.9, adult: Status: Acute (2) Multiparity: Status: Acute (3) Previous section: Status: Acute Assessment and plan: PPD/POD#2 status post repeat and inability to access the tubes to perform surgical sterilization 1. Continue routine care 2. Transition to PO meds. 3. Encourage to ambulate/ breast-feed 4. Anticipate discharge home today. (4) Supervision of high risk in third trimester: Status: Acute Time Spent With Patient Time: Total time spent is greater than 50% in coordination of care (as documented) at patient's floor/unit and/or counseling patient:
--- NOTE | 2024-12-02 08:05 | PD.LDDS ---
DS: Providers Provider Date of admission: 11/30/24 10:59 Primary care physician: Matilde Cornell PA-C Admitting Provider: Bertha Archer MD ([facility]) Attending Provider on Admission: Diomedes Armstrong MD Consults: 11/30/24 13:35 Referral Routine Comment: Attending Provider on DC: Diomedes Armstrong MD Discharging Provider: Diomedes Armstrong MD DS: Diagnosis Discharge Diagnosis (1) Morbid obesity with BMI of 40.0-44.9, adult: Status: Acute (2) Previous section: Status: Acute (3) Multiparity: Status: Acute Problem List Completed Was Problem List Reviewed/Reconciled?: Yes Summary/Hosp Course Brief History: Patient is a 39-year-old -0-1-2 history of x 1 and history of miscarriage x 1 in the past. All care was started with Dr. Malin and transferred to Dr. Armstrong at 30 weeks . Patient is 38-3/7 weeks with an EDC of 12/11/2024. She has a history of x 2 and presented to triage this afternoon with painful regular uterine contractions. Patient cervix was 1 to 2 cm dilated. She has a history of x 2 in the past she was consented for repeat low-transverse section in labor. Of note the patient desires permanent sterilization and did sign tubal consents in the office with Dr. Malin. These are on the chart. She understands the risk of a tubal ligation including the permanency of the procedure, the risk of failure of 1 in the 100, and the increased risk of ectopic should failure occur. The patient desires to proceed with repeat and tubal ligation at this time. Peripartum Data Delivery Method: Low Transverse Episiotomy Description: None Procedures: Procedures Operation Date: 11/30/24 12:45 Actual Procedure Side Surgeon p in OB Bertha Archer ([facility])MD Time Spent with Patient Time attestation: Total time spent providing and/or coordinating discharge services: Exam Vital Signs Temp Pulse Resp BP Pulse Ox O2 Del Method 98.1 F 84 18 113/71 99 Room Air 12/02/24 04:06 12/02/24 04:06 12/02/24 04:06 12/02/24 04:06 12/02/24 04:06 12/02/24 04:06 Discharge Plan Problem List Was Problem List Reviewed/Reconciled?: Yes Plan Patient Disposition: HOME (Self Care) Patient condition on transfer: Stable Prescriptions/Referrals Prescriptions/Med Rec: No Action prenat.vits,wen,[id number]-[id number] Tablet 1 tab PO QDAY nifedipine 10 mg capsule 10 mg PO TID 5 Days Qty: 15 0RF Referrals: Matilde Cornell PA-C [Primary Care Provider] - Patient/Caregiver Discharge Instructions Education Materials: C Section Dc Print Language: Upper Sorbian Stand Alone Forms: Tiki Award Info., Patient Portal Info Letter Planned Discharge Date 12/02/24
[2024-12-02] MEDS: ENOXAPARIN SOD INJ 40 MG/0.4 ML SYRINGE SC (08:12)
--- NOTE | 2024-12-02 10:38 | CHAP ---
Gave a blessing on and family and encouragement to mother.
--- NOTE | 2024-12-02 10:54 | PC.SS ---
SS conducted bedside contact with the patient to address nursing referral indicating patient scored high on the depression scale.? SS introduced self and role.? SS discussed with patient basis of referral.? Patient denied having any feelings of depression. Patient states she was only feeling depressed during and that she feels fine now.? Patient, currently, has no impairments. Patient has no current thoughts of harming herself or others.? No other history of documented mental health. FOB, Ric Saul, resides in the home. This is patient?s 3nd child. Apison, baby boyJosias, was born ?on 11[birth year]30-24 via . Patient?s other children are ages: 3 and 14 years old. care was completed with Dr. Malin.? Patient was consistent with . Patient plans on breast/bottle feeding. Patient is aligned with WIC., [place] assistance and Food stamps. Patient denies history of drug/alcohol abuse, domestic violence. Patient describes possessing positive support from her friends. Patient has all resources to include: car seat, clothing and supplies.? guest services manager provided resources to include:? Parenting Network, Warm Line and community numbers. SS discussed in further detail emotional support and answered all questions appropriately. No further intervention required at this time, social work supervisor will be available to address any further concerns. SS updated bedside nurse. Patient to discharge home this morning.
== END 2024-12-02 11:18 | disposition home or self-care (01) | DRG 539 ==
LOC: S4SX 12:13 → S4NX 13:40 → S4SX 14:41
PROVIDERS: Admitting Provider Obstetrics & Gynecology; PCP Specialist; Visit Provider Obstetrics & Gynecology
PROC: 10D00Z1 Extraction of Products of Conception, Low, Open Approach (ICD-10-PCS; CPT 59514; principal; 2024-11-30 12:30)
DX: O34.211 Maternal care for low transverse scar from previous cesarean delivery (principal); O99.214 Obesity complicating childbirth; E66.01 Morbid (severe) obesity due to excess calories; Z37.0 Single live birth; O69.81X0 Labor and delivery complicated by cord around neck, without compression, not applicable or unspecified; Z3A.38 38 weeks gestation of pregnancy; Z30.2 Encounter for sterilization; O99.892 Other specified diseases and conditions complicating childbirth; N73.6 Female pelvic peritoneal adhesions (postinfective); Z3A.39 39 weeks gestation of pregnancy; K66.0 Peritoneal adhesions (postprocedural) (postinfection)
CPT/HCPCS: 36415; 59409; 85025; 86780; 86850; 86900; 86901; 94762; A4649; J0689; J1100; J1650; J1885; J2210; J2371; J2405; J2590; J3490; J7120; A9270

== ENCOUNTER 2024-12-15 13:19 | Outpatient (AMB) | payer MEDICAID, SELFPAY ==
[2024-12-15 13:28] VITALS: BP 114/77; PULSE 71; RESP 18; TEMP 36.6; O2SAT 97
--- NOTE | 2024-12-15 13:28 | AMBOBPPN_ITS ---
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 Do You Feel Safe at Home: Yes Authorities Contacted: N/A PCP or OBGYN visit in last 3 months: Yes Date of Last PCP or OBGYN visit: 12/01/24 Hx Now: No Are you currently on any form of Control: No Pain Present Currently: No Smoking Status Smoking Status: Never 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 Medical History Past Medical History: No Hx Neurological Disorders, No Hx Breast Cancer, No Hx Cardiac Disorders, No Hx Hypertension, No Hx Cancer, No Hx Blood Disorders, No Hx Anemia, No Hx Gastrointestinal Disorders, No Hx Renal Disease, No Hx Diabetes Mellitus Type 1 and No Hx Diabetes Mellitus Type 2 Questionnaires Social History Living Situation History Marital Status: ( and remarried) Lives With: Family Housing: House Tobacco History Smoking Status: Never smoker Second Hand Smoke Exposure: No Alcohol History Alcohol Intake: Never Alcohol Intake Frequency: holidays/special occasions only Substance Use History Substance Use: NONE Domestic Abuse History Do You Feel Safe at Home: Yes EPDS - PP Depression Screening Reliance Pospartum Depression Screen I have been able to laugh and see the funny side of things: (0) As much as I always could I have looked forward with enjoyment to things: (0) As much as I ever did I have blamed myself unnecessarily when things went wrong: (0) No, never I have been anxious or worried for no good reason: (0) No, not at all I have felt scared or panicky for no very good reason: (0) No, not at all Things have been getting on top of me: (0) No, I have been coping as well as ever I have been so unhappy that I have had difficulty sleeping: (0) No, not at all I have felt sad or miserable: (0) No, not at all I have been so unhappy that I have been crying: (0) No, never The thought of harming myself has occurred to me: (0) Never Total Score: EPDS Score: Referral is indicated for score of 9 or more, suicidal, or if provider believes patient is depressed regardless of score.: 0 EPDS completed yes Care OB Visit Log OB Flowsheet Initial Weight: Not Recorded Date -?-?-?-?-?-?-?-?-?-?-?-?- EGA Weight BP Alb Glu CTX Pres Fundal ht FHR Mov Dilation Station Effacement Hx Notes Visit Note 10/06/24 -?-?-?-?-?-?-?-?-?-?-?-?- 30w 4d 109.826 kg 130/84 135 active Transfer of care from Dr Malin. Records reviewed. Prev Nathan Morrow, pre sents for routine visit. Reports daily agitation, anxiety, numbne ss/pain in hands, severe lower back pain, and insomnia. Requests work leave starting Friday. No CTX/LOF/VB. Reports good FM. No MAX/VS, Epig/RUQ pain. History of 2 prior C-sections and 1 misc arriage. Not diabetic. Labs noted as good. Assessment & Plan: Carlyn Aguilar is a presenting f or follow-up with multiple third-trimester complaints. High-risk (2 prior C-sections) heart tones auscultated, reassurin g Provide work note for leave starting Fri Follow-up in 2 weeks, then transition to weekly appointments Continue routine monitoring Nathan Morrow, pre sents for routine visit. Reports daily agitation, anxiety, numbne ss/pain in hands, severe lower back pain, and insomnia. Requests work leave starting Friday. No CTX/LOF/VB. Reports good FM. No MAX/VS, Epig/RUQ pain. History of 2 prior C-sections and 1 misc arriage. Not diabetic. Labs noted as good. Assessment & Plan: Carlyn Aguilar is a presenting f or follow-up with multiple third-trimester complaints. High-risk (2 prior C-sections) heart tones auscultated, reassurin g Provide work note for leave starting Fri day Follow-up in 2 weeks, then transition to weekly appointments Continue routine monitoring. Delivery counseling Reviewed prior history and del balta options Discussed risks of TOLAC, including uter ine rupture Noted that [facility] do es not permit TOLAC; referral to outside facility if TOLAC desired Plan for scheduled repeat if n o contraindications arise Routine counseling Reinforced importance of vitami ns (folic acid, iron, calcium) Advised avoiding alcohol, smoking, and u nsafe medications Reviewed signs of complications (severe cramping, bleeding) and when to seek care Encouraged open communication and attendance at all follow-u p visits 11/02/24 -?-?-?-?-?-?-?-?-?-?-?-?- 34w 3d 111.811 kg 114/76 140 active Carlyn Aguilar, at 34 weeks and 3 days gestation, presents for routine follow-up. No CTX/LOF/VB. Reports good FM. No MAX/VS , Epig/RUQ pain. Complains of lower abdominal pain consis tent with round ligament pain, worsened by movement or stretching. History of 2 prior C-sections, 1 . Confusion noted regarding URMILA (12/07 vs 12/11). Patient expresses concern that previously scheduled level 2 US on 12/01 may be too close to potential delivery date. Inquires about scheduling and hospital registration. FHR auscultated: 130 bpm (normal). Assessment & Plan: Carlyn Aguilar is a at 34w3d ges tation presenting for visit with round ligament pain and questions regarding delivery planning. ? ?FHR 130 bpm, reassuring ?Adjust URMILA in system to reflect December d or per Dr. Malin? prior assessment ?Schedule at 39w0d (one week b efore adjusted URMILA) ?No additional hospital pre-registration needed; current visit suffices ?Contact patient with scheduled C-sectio n date once confirmed Round ligament pain ?Reassure patient this is common in late ?Encourage rest and positional support, especially when pain is triggered by movement or activity Ultrasound planning ?Level 2 US for placenta previa screenin g to be completed within next 2 weeks ?[facility] pending insur ance approval ?Reschedule earlier than 12/01 due to pat ient?s history of early delivery counseling ?Reviewed signs of labor (CTX q5 min, LOF, VB) ?Advised avoiding heavy lifting, promote rest ?Encourage balanced diet with folic acid , calcium, iron; avoid excess sugar ?Promote hydration and small, frequent m eals 11/16/24 -?-?-?-?-?-?-?-?-?-?-?-?- 36w 3d 112.491 kg 120/81 Carlyn Aguilar, 36 y/o at 36w3d, presents for visit. History of 2 prior sections. Discrepant EDDs noted ([facility]WC URMILA 12/07/2024 vs. corrected URMILA 12/11/2024 based on 7w ultrasound). Scheduled for repeat (#3) on 12/06/2024 at 12:30 PM. No plans for BTL. Reports good movement, no contractions or labor signs. GBS swab collected today, results pending. Plan: Proceed with planned on 12/07/19 at 12:30 PM Monitor for any earlier openings on the surgical schedule Await GBS result; treat per protocol if positive Routine follow-up in 10?14 da ys post-op Patient education reviewed: moveme nt monitoring, signs of labor, and when to present to L&D URMILA Calculator Estimated Delivery Date Method Current WG Current Estimate 12/11/24 Ultrasound #1 40w 4d Other Estimates 11/07/24 LMP (Uncertain) 45w 3d HPI Interval History: The patient is a 39-year-old G4 now P3013 who underwent a repeat in labor at 38-3/7 weeks on 11/30/[address] Archer. It was her third . She had desired tubal ligation but this was unable to be performed as her fallopian tubes were completely scarred to the sides of her uterus bilaterally. I did not recommend a laparoscopic tubal. She states her will not get a vasectomy. She is interested in possible Nexplanon. She is trying to breast- feed the baby but states she is not making much milk She is otherwise healing well. She denies heavy bleeding, fevers ,chills, shortness of breath or depression. She is a little frustrated because she states her first was more helpful after her other child than her new is being with this child. But she denies any signs of severe depression. Was or delivery considered high risk: No Delivery type: Was labor induced: no Gestational age at delivery (weeks): 38 Delivery date: 11/30/24 Delivering provider: Dr. Michaela Archer Delivery complications: No Delivery complications comment: None Is patient infant: Yes Is patient sexually active: No Contraception planned: Desired tubal ligation. Unable to be performed. Considering Nexplanon. 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 No hot flashes. Patient is breast-feeding but also supplementing. No severe depression Exam Narrative Physical exam: Patient is alert and oriented x 3 in no apparent distress. She is walking well. She has good eye contact and good color. General General Appearance: alert, in no apparent distress, comfortable, cooperative, healthy appearing and well groomed Abdominal Abdominal exam: Present soft, scar (Incision healing well) and other (Fundus firm nontender about 3 cm above her umbilicus.) Office Procedures OB Clinic LOC & Office Proc's Nursing/Assessment Patient Status: Established Patient OB Clinic Nursing Assessment: BP Monitoring, Medication Reconciliation, Update PMH in EMR and Vital Signs OB Clinic Coordination of Care: Complex Care and Chronic Disease 1-5, Consent,records obtained, informed consent, Lab and Imaging orders and Results/Orders obtained Established Patient Charge Established Patient Point Assignment: 95 Established Patient Point Charge: EP Level 3 (80-115) Post Follow-up Visit Post Follow up Visit: Yes Assessment & Plan Care Reviewed delivery summary and any complications: Yes Uterus involuted to: 23 cm Perineal / incision healing noted: Yes Screened for depression: Yes Depression counseling provided: No Discussed family planning & contraception: Yes Contraception planned: Desired tubal ligation. Unable to be performed. Considering Nexplanon. Counseling on safe resumption of sexual activity: Yes Counseling on gradual excercise: Yes Discussed and concerns (describe), provided support: Yes Referred to employee placement specialist: No Counseled on good nutrition, hydration, and self care: Yes Reviewed vaccine status: No Chronic & current problems reconciled on problem list: No Additional follow up plans: Follow-up in 4 weeks Infant care discussed; questions answered: feeding Follow up: routine/prn (In 4 weeks for a pelvic exam and complete physical exam)
== END 2024-12-15 13:43 | disposition home or self-care (01) ==
LOC: HODSOBC 13:19
PROVIDERS: PCP Obstetrics & Gynecology; Referring Provider Obstetrics & Gynecology; Supervising Provider Obstetrics & Gynecology; Visit Provider Obstetrics & Gynecology
DX: Z39.2 Encounter for routine postpartum follow-up (principal); Z39.1 Encounter for care and examination of lactating mother
CPT/HCPCS: 99213; G0463

== ENCOUNTER 2025-01-21 13:36 | Outpatient (AMB) | payer MEDICAID, SELFPAY ==
[2025-01-21 13:51] VITALS: BP 95/61; PULSE 72; RESP 17; TEMP 36.5; O2SAT 96; BMI 35.0
--- NOTE | 2025-01-21 13:51 | AMBOBPPN_ITS ---
Vital Signs 01/21/25 13:51 Height 1.68 m Height Method Stated Weight 98.997 kg Weight Measurement Method Standing Scale BMI 35.0 BP 95/61 Blood Pressure Source Automatic Cuff Blood Pressure Location Right Upper Arm Position Sitting Respiration 17 Pulse 72 Pulse Source Monitor Temp 97.7 F Temp Source Temporal Artery Scan Pulse Oximetry (%) 96 Oxygen Delivery Method Room Air Allergies/Home Meds Allergies & Medications Allergies No Known Allergies Allergy (Verified 01/21/25 13:52) Medication Reconciliation Unobtainable 01/21/25 [History Confirmed 01/21/25] Intake Visit Data Collection New Patient or Established: Established Patient (seen at [facility] within 3 years) Reason for Visit:: CESECTION FOLLOW UP Seen by Clinical Staff ONLY (RN/MA): No Cabana Attendant Required: No Do You Feel Safe at Home: Yes Authorities Contacted: N/A PCP or OBGYN visit in last 3 months: Yes Date of Last PCP or OBGYN visit: 12/15/24 Hx Now: No Are you currently on any form of Control: No Last menstrual period: 11/30/24 Pain Present Currently: No Pain Scale Used: Guillory-Irby/Numerical Pain scale:: 0 Smoking Status Smoking Status: Never smoker 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: Past Medical History Past Medical History: No Hx Neurological Disorders, No Hx Breast Cancer, No Hx Cardiac Disorders, No Hx Hypertension, No Hx Cancer, No Hx Blood Disorders, No Hx Anemia, No Hx Gastrointestinal Disorders, No Hx Renal Disease, No Hx Diabetes Mellitus Type 1 and No Hx Diabetes Mellitus Type 2 Questionnaires Covid-19 Vaccine Questionnaire Has patient been vacinated for Covid-19 Have you been vacinated for Covid-19: Yes Social History Living Situation History Marital Status: Lives With: Family Housing: House Tobacco History Smoking Status: Never smoker Second Hand Smoke Exposure: No Alcohol History Alcohol Intake: Never Alcohol Intake Frequency: holidays/special occasions only Substance Use History Substance Use: NONE Domestic Abuse History Do You Feel Safe at Home: Yes EPDS - PP Depression Screening [place] Pospartum Depression Screen I have been able to laugh and see the funny side of things: (0) As much as I always could I have looked forward with enjoyment to things: (0) As much as I ever did I have blamed myself unnecessarily when things went wrong: (0) No, never I have been anxious or worried for no good reason: (0) No, not at all I have felt scared or panicky for no very good reason: (0) No, not at all Things have been getting on top of me: (0) No, I have been coping as well as ever I have been so unhappy that I have had difficulty sleeping: (0) No, not at all I have felt sad or miserable: (0) No, not at all I have been so unhappy that I have been crying: (0) No, never EPDS completed yes Care OB Visit Log OB Flowsheet Initial Weight: Not Recorded Date -?-?-?-?-?-?-?-?-?-?-?-?- EGA Weight BP Alb Glu CTX Pres Fundal ht FHR Mov Dilation Station Effacement Hx Notes Visit Note 10/06/24 -?-?-?-?-?-?-?-?-?-?-?-?- 30w 4d 109.826 kg 130/84 135 active Transfer of care from Dr Malin. Records reviewed. Prev Nathan Morrow, pre sents for routine visit. Reports daily agitation, anxiety, numbne ss/pain in hands, severe lower back pain, and insomnia. Requests work leave starting Friday. No CTX/LOF/VB. Reports good FM. No MAX/VS, Epig/RUQ pain. History of 2 prior C-sections and 1 misc arriage. Not diabetic. Labs noted as good. Assessment & Plan: Carlyn Aguilar is a presenting f or follow-up with multiple third-trimester complaints. High-risk (2 prior C-sections) heart tones auscultated, reassurin g Provide work note for leave starting Fri Follow-up in 2 weeks, then transition to weekly appointments Continue routine monitoring Nathan Morrow, pre sents for routine visit. Reports daily agitation, anxiety, numbne ss/pain in hands, severe lower back pain, and insomnia. Requests work leave starting Friday. No CTX/LOF/VB. Reports good FM. No AMX/VS, Epig/RUQ pain. History of 2 prior C-sections and 1 misc arriage. Not diabetic. Labs noted as good. Assessment & Plan: Carlyn Aguilar is a presenting f or follow-up with multiple third-trimester complaints. High-risk (2 prior C-sections) heart tones auscultated, reassurin g Provide work note for leave starting Fri day Follow-up in 2 weeks, then transition to weekly appointments Continue routine monitoring. Delivery counseling Reviewed prior history and del balta options Discussed risks of TOLAC, including uter ine rupture Noted that [facility] do es not permit TOLAC; referral to outside facility if TOLAC desired Plan for scheduled repeat if n o contraindications arise Routine counseling Reinforced importance of vitami ns (folic acid, iron, calcium) Advised avoiding alcohol, smoking, and u nsafe medications Reviewed signs of complications (severe cramping, bleeding) and when to seek care Encouraged open communication and attendance at all follow-u p visits 11/02/24 -?-?-?-?-?-?-?-?-?-?-?-?- 34w 3d 111.811 kg 114/76 140 active Carlyn Aguilar, at 34 weeks and 3 days gestation, presents for routine follow-up. No CTX/LOF/VB. Reports good FM. No MAX/VS , Epig/RUQ pain. Complains of lower abdominal pain consis tent with round ligament pain, worsened by movement or stretching. History of 2 prior C-sections, 1 . Confusion noted regarding URMILA (12/07 vs 6). Patient expresses concern that previously scheduled level 2 US on 12/01 may be too close to potential delivery date. Inquires about scheduling and hospital registration. FHR auscultated: 130 bpm (normal). Assessment & Plan: Carlyn Aguilar is a at 34w3d ges tation presenting for visit wi th round ligament pain and questions regarding delivery planning. ? ?FHR 130 bpm, reassuring ?Adjust URMILA in system to reflect December d or per Dr. Malin? prior assessment ?Schedule at 39w0d (one week b efore adjusted URMILA) ?No additional hospital pre-registration needed; current visit suffices ?Contact patient with scheduled C-sectio n date once confirmed Round ligament pain ?Reassure patient this is common in late ?Encourage rest and positional support, especially when pain is triggered by movement or activity Ultrasound planning ?Level 2 US for placenta previa screenin g to be completed within next 2 weeks ?Order through [facility] pending insur ance approval ?Reschedule earlier than 12/01 due to pat ient?s history of early delivery counseling ?Reviewed signs of labor (CTX q5 min, LOF, VB) ?Advised avoiding heavy lifting, promote rest ?Encourage balanced diet with folic acid , calcium, iron; avoid excess sugar ?Promote hydration and small, frequent m eals 11/16/24 -?-?-?-?-?-?-?-?-?-?-?-?- 36w 3d 112.491 kg 120/81 Carlyn Aguilar, 36 y/o at 36w3d, presents for visit. History of 2 prior sections. Discrepant EDDs noted ([facility] URMILA 12/07/2024 vs. corrected URMILA 12/11/2024 based on 7w ultrasound). Scheduled for repeat (#3) on 12/06/2024 at 12:30 PM. No plans for BTL. Reports good movement, no contractions or labor signs. GBS swab collected today, results pending. Plan: Proceed with planned on 12/07/19 at 12:30 PM Monitor for any earlier openings on the surgical schedule Await GBS result; treat per protocol if positive Routine follow-up in 10?14 da ys post-op Patient education reviewed: moveme nt monitoring, signs of labor, and when to present to L&D URMILA Calculator Estimated Delivery Date Method Current WG Current Estimate 12/11/24 Ultrasound #1 45w 6d Other Estimates 11/07/24 LMP (Uncertain) 50w 5d Office Procedures OB Clinic LOC & Office Proc's Nursing/Assessment Patient Status: Established Patient OB Clinic Nursing Assessment: Medication Reconciliation, Update PMH in EMR and Vital Signs OB Clinic Coordination of Care: Complex Care and Chronic Disease 1-5, Consent,records obtained, informed consent, Education Simp Pt/Fam and Staff clarify orders Established Patient Charge Established Patient Point Assignment: 85 Post Follow-up Visit Post Follow up Visit: Yes
== END 2025-01-21 14:13 | disposition home or self-care (01) ==
LOC: HODSOBC 13:36
PROVIDERS: PCP Obstetrics & Gynecology; Referring Provider Obstetrics & Gynecology; Supervising Provider Obstetrics & Gynecology; Visit Provider Obstetrics & Gynecology
DX: Z39.2 Encounter for routine postpartum follow-up (principal)